=== PATIENT | female | born 1970 | race Caucasian/White ===

== ENCOUNTER 2017-09-27 20:12 | Emergency (ER) | payer OTHER ==
[~2017-09-27] VITALS: Ht 160 cm; Wt 95.3 kg
--- NOTE | 2017-09-27 21:08 | ED GENERAL ADULT ---
History of Present Illness General Chief Complaint: General Adult Stated Complaint: "NAUSEA, DIZZY, DIARREHA" Source: patient Exam Limitations: no limitations Vital Signs & Intake/Output Vital Signs & Intake/Output Vital Signs Date Time Temp Pulse Resp B/P B/P Pulse O2 O2 Flow FiO2 Mean Ox Delivery Rate 09/27 2022 97.7 103 18 139/86 98 Room Air Allergies Coded Allergies: No Known Drug Allergies (NKDA 09/27/17) Reconcile Medications Ondansetron (Zofran Odt) 4 MG TAB.RAPDIS 1 TAB SL TID PRN nausea Triage Note: PT TO ED C/O +NAUSEA, DIZZINESS AND SOFT STOOL STARTING TODAY. STATES HAS HAD A COUGH "FOR WEEK" WITH YELLOW SPUTUM. O2 SAT 98% ON RA IN TRIAGE. PT AFEBRILE IN TRIAGE. WORKS IN A [employer]. DENIES UTI S/S. CURRENT MENSES. Triage Nurses Notes Reviewed? yes Onset: Gradual Duration: hour(s): Timing: constant : No Patient currently breastfeeds: No HPI: 47-year-old female with no known past medical history presenting with nausea, diarrhea, lightheadedness that began today. Also endorses lower abdominal cramping, but states that she is currently menstruating and this feels that her menstrual cramps. Patient states that she had respiratory symptoms over the past 3 weeks with nasal congestion, rhinorrhea, nonproductive cough that has been gradually improving, now only with very mild cough. Denies fevers, chest pain, shortness of breath, vomiting, dysuria. 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 (Mine Escobar) Past History Travel History Traveled to [place] past 21 day No Medical History Any Pertinent Medical History? none Neurological: NONE EENT: NONE Cardiovascular: NONE Respiratory: NONE Gastrointestinal: NONE Hepatic: NONE Renal: NONE Musculoskeletal: NONE Psychiatric: NONE Endocrine: NONE Surgical History Surgical History: non-contributory Psychosocial History What is your primary language Citizen Of [place] Tobacco Use: Never used ETOH Use: occasional use Illicit Drug Use: denies illicit drug use Family History Hx Contributory? No (Mine Escobar) Review of Systems Review of Systems Constitutional: Reports: no symptoms. EENTM: Reports: no symptoms. Respiratory: Reports: cough. Denies: short of breath, wheezing. Cardiovascular: Reports: no symptoms. GI: Reports: see HPI, abdominal pain, diarrhea, nausea. Denies: bloody stool, vomiting. Genitourinary: Reports: no symptoms. Musculoskeletal: Reports: no symptoms. Skin: Reports: no symptoms. Neurological/Psychological: Reports: no symptoms. Hematologic/Endocrine: Reports: no symptoms. Immunologic/Allergic: Reports: no symptoms. (Mine Escobar) Physical Exam Physical Exam General Appearance: well developed/nourished, no apparent distress, alert, awake , comfortable Head: atraumatic, normal appearance Eyes: Bilateral: normal appearance. Ears, Nose, Throat: normal ENT inspection Neck: normal inspection, supple Respiratory: normal breath sounds, lungs clear Cardiovascular: regular rate/rhythm, normal peripheral pulses Gastrointestinal: soft, non-tender Back: normal inspection Extremities: normal inspection Neurologic/Psych: awake, alert, oriented x 3, normal gait, normal mood/affect Skin: intact, normal color, warm/dry Core Measures ACS in differential dx? No CVA/TIA Diagnosis: No Sepsis Present: No Sepsis Focused Exam Completed? No (Mine Escobar) Progress Differential Diagnoses I considered the following diagnoses in my evaluation of the patient: [Likely viral syndrome - URI versus gastroenteritis. Low concern for pneumonia versus acute abdomen versus UTI.] Plan of Care: Orders Procedure Date/time Status URINALYSIS 09/28 2111 Complete TROPONIN LEVEL 09/27 2025 Complete LIPASE 09/27 2025 Complete HEPATIC FUNCTION PANEL 09/27 2025 Complete HUMAN BETA HCG SCREEN 09/27 2025 Complete CBC WITHOUT DIFFERENTIAL 09/27 2025 Complete BASIC METABOLIC PANEL 09/27 2025 Complete AMYLASE 09/27 2025 Complete EKG 09/27 2025 Active Laboratory Tests 09/27/172108: Anion Gap 11, Estimated GFR > 60, BUN/Creatinine Ratio 25.7 H, Glucose 107 H, Calcium 9.1, Total Bilirubin 0.6, Direct Bilirubin 0.6 H, AST 19, ALT 27, Alkaline Phosphatase 89, Troponin I < 0.01, Total Protein 7.9, Albumin 4.4, Amylase 46, Lipase 61, Total Beta HCG NEGATIVE, CBC w Diff NO MAN DIFF REQ, RBC 4.43, MCV 84.8, MCH 27.7, MCHC 32.6 L, RDW 14.2, MPV 8.4, Gran % 71.8, Lymphocytes % 19.4 L, Monocytes % 6.3, Eosinophils % 1.9, Basophils % 0.6, Absolute Granulocytes 6.3, Absolute Lymphocytes 1.7, Absolute Monocytes 0.5, Absolute Eosinophils 0.2, Absolute Basophils 0 09/27/172102: Urine Color YEL, Urine Clarity CLEAR, Urine pH 6.5, Ur Specific Dudley <= 1.005 , Urine Protein NEG, Urine Ketones NEG, Urine Nitrite NEG, Urine Bilirubin NEG, Urine Urobilinogen 0.2, Ur Leukocyte Esterase NEG, Ur Microscopic SEDIMENT EXAMINED, Urine RBC RARE, Urine Bacteria FEW H, Urine Hemoglobin LARGE H, Urine Glucose NEG Labs, urine, chest x-ray unremarkable. Patient reports improvement in nausea after Zofran and was able to tolerate po in the emergency department. Likely with viral syndrome and counseled on supportive care. Given Rx Zofran. Will follow-up with her PMD. Given strict return precautions. Initial ED EKG: NSR, rate (90) (Mine Escobar) Departure Departure Disposition: HOME OR SELF CARE Condition: Stable Clinical Impression Primary Impression: Diarrhea Secondary Impressions: Abdominal pain, Cough, Nausea Referrals: Kenn PUGH,Ghanshyam Suazo (PCP/Family) Additional Instructions: Use Zofran as needed for nausea or vomiting. Maintain adequate fluid intake and eat small meals as tolerable. Follow-up with your primary care provider for reevaluation. Return to the emergency department for any new or worsening symptoms. Departure Forms: Customer Survey General Discharge Information Prescriptions: Current Visit Scripts Ondansetron (Zofran Odt) 1 TAB SL TID PRN nausea #20 TAB (Mine sEcobar) PA/CAREER AGENT Co-Sign Statement Statement: ED Attending supervision documentation- [] I saw and evaluated the patient. I have also reviewed all the pertinent lab results and diagnostic results. I agree with the findings and the plan of care as documented in the PA's/CAREER AGENT's documentation. [x] I have reviewed the ED Record and agree with the PA's/CAREER AGENT's documentation. [] Additions or exceptions (if any) to the PAs/CAREER AGENT's note and plan are summarized below: [] (Yecenia PUGH,Leonides Clifton) Critical Care Note Critical Care Note Critical Care Time: non-applicable (Mine Escobar)
[2017-09-27 21:15] LABS: ABSOLUTE BASOPHIL COUNT 0 /CUMM (0.0-0.2); ABSOLUTE EOSINOPHIL COUNT 0.2 /CUMM (0.0-0.7); ABSOLUTE GRANULOCYTE CT 6.3 /CUMM (1.4-6.5); ABSOLUTE LYMPH COUNT 1.7 /CUMM (1.2-3.4); ABSOLUTE MONOCYTE COUNT 0.5 /CUMM (0.10-0.60); BASOPHIL % 0.6 % (0.0-2.0); EOSINOPHIL % 1.9 % (0-5); GRANULOCYTE % 71.8 % (42.2-75.2); HEMATOCRIT 37.5 % (37-47); MEAN CORPUSCULAR HGB 27.7 PG (27.0-31.0); MEAN CORPUSCULAR HGB CONC 32.6 G/DL (33.0-37.0); MEAN CORPUSCULAR VOLUME 84.8 FL (81.0-99.0); MEAN PLATELET VOLUME 8.4 FL (7.4-10.4); PLATELET COUNT 316 /CUMM (130-400); RBC DISTRIBUTION WIDTH 14.2 % (11.5-14.5); RED BLOOD CELL CT 4.43 /CUMM (4.20-5.40); WHITE BLOOD CELL COUNT 8.7 /CUMM (4.8-10.8)
--- NOTE | 2017-09-27 21:33 | RADIOLOGY REPORT ---
EXAMINATION: XR CHEST CLINICAL INFORMATION: Cough. Sputum for 3 weeks. COMPARISON: None TECHNIQUE: 2 views of the chest were obtained. FINDINGS: No significant abnormality is noted involving the heart, lungs, mediastinum, bony thorax or soft tissues. IMPRESSION: Unremarkable examination.
[2017-09-27] MEDS ORDERED: ZOFRAN ODT4 M1 SL (22:09)
[2017-09-27 22:35] VITALS: BP 133/81
== END 2017-09-27 22:40 ==
LOC: ERH 20:12
PROVIDERS: Pediatrics
DX: R19.7 Diarrhea, unspecified (principal); R10.30 Lower abdominal pain, unspecified; R05 Cough; R11.0 Nausea
CPT/HCPCS: 71046; 81001; 93005; 93010; J3101

== ENCOUNTER 2017-12-04 22:00 | Emergency (ER) | payer OTHER ==
[~2017-12-04] VITALS: Ht 162.6 cm; Wt 99.8 kg
[~2017-12-04 22:00] MED LIST: ZOFRAN ODT4 M1 SL
--- NOTE | 2017-12-04 22:29 | ED GI/GU/ABDOMINAL COMPLAINT ---
History of Present Illness General Chief Complaint: Abdominal Pain/Flank Pain Stated Complaint: ABD PAIN Source: patient Exam Limitations: no limitations Vital Signs & Intake/Output Vital Signs & Intake/Output Vital Signs Date Time Temp Pulse Resp B/P B/P Pulse O2 O2 Flow FiO2 Mean Ox Delivery Rate 12/04 2346 99.2 109 18 106/56 97 Room Air 12/04 2236 Room Air 12/04 2203 98.3 124 20 106/74 96 Room Air ED Intake and Output 12/05 0000 12/04 1200 Intake Total 0 Output Total Balance 0 Intake, Oral 0 Patient 220 lb Weight Weight Reported by Patient Measurement Method Allergies Coded Allergies: No Known Allergies (12/04/17) Reconcile Medications Ciprofloxacin HCl (Cipro) 500 MG TABLET 1 TAB PO BID uti Ondansetron (Zofran Odt) 4 MG TAB.RAPDIS 1 TAB SL TID PRN nausea Triage Note: TRIAGE: PT TO ER C/C MID/UPPER ABD PAIN WITH RADIATION TO LOWER ABD, ONSET SATURDAY, CONSTANT SINCE ONSET THOUGH WAXES AND WANES IN INTENSITY. -NAUSEA AT PRESENT BUT REPORTS SOME NAUSEA EARLY SATURDAY MORNING WITH 1 EPISODE OF VOMITING. REPORTS A LITTLE BIT OF DIARRHEA TODAY, LAST NORMAL BOWEL MOVEMENT 4-5 DAYS AGO. -URINARY S/S. LMP MIDDLE OF LAST MONTH. Triage Nurses Notes Reviewed? yes ? n Is pt currently ? No Onset: Abrupt Duration: day(s): (3) Timing: recent history Location: epigastric Radiation: no radiation Activities at Onset: none No Modifying Factors: none HPI: 47-year-old female comes into the emergency room for further evaluation of upper abdominal pain. She is had decrease in bowel movements. She has not had a bowel movement in 4 days which is not typical for her. She denies any fever chills vomiting. Denies any prior abdominal surgeries. Denies any urinary symptoms. Nothing seems to make the symptoms better or worse. (Chico Colvin) Past History Travel History Traveled to [place] past 21 day No Medical History Any Pertinent Medical History? 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 No (Chico Colvin) Review of Systems Review of Systems Constitutional: Reports: no symptoms. EENTM: Reports: no symptoms. Respiratory: Reports: no symptoms. Cardiovascular: Reports: no symptoms. GI: Reports: see HPI. Genitourinary: Reports: no symptoms. Musculoskeletal: Reports: no symptoms. Skin: Reports: no symptoms. Neurological/Psychological: Reports: no symptoms. Hematologic/Endocrine: Reports: no symptoms. Immunologic/Allergic: Reports: no symptoms. All Other Systems: Reviewed and Negative (Chico Colvin) Physical Exam Physical Exam General Appearance: well developed/nourished, alert, awake Head: atraumatic Eyes: Bilateral: normal appearance. Ears, Nose, Throat, Mouth: hearing grossly normal, moist mucous membrane Neck: normal inspection Respiratory: no respiratory distress Gastrointestinal: soft Back: normal inspection Extremities: normal range of motion Neurologic/Psych: awake, alert, oriented x 3 Skin: intact, normal color Core Measures ACS in differential dx? No Sepsis Present: No Sepsis Focused Exam Completed? No (Chico Colvin) Progress Differential Diagnosis: appendicitis, biliary colic, bowel obstruction, cholecystitis, diverticulitis, gastritis, hepatitis, hernia, ischemic bowel, inflamm bowel dis, kidney stone, pancreatitis, peptic ulcer, PUD/GERD, perforated viscous, SBO, UTI/pyelo Plan of Care: Orders Procedure Date/time Status Add-on Test (ER Only) 12/05 0023 Active CULTURE,URINE 12/04 2341 Active URINALYSIS 12/04 2212 Complete TROPONIN LEVEL 12/04 2204 Complete LIPASE 12/04 2204 Complete HEPATIC FUNCTION PANEL 12/04 2204 Complete HUMAN BETA HCG SCREEN 12/04 2204 Complete CBC WITHOUT DIFFERENTIAL 12/04 2204 Complete BASIC METABOLIC PANEL 12/04 2204 Complete AMYLASE 12/04 2204 Complete EKG 12/04 2204 Active Laboratory Tests 12/04/17 2341: Urinalysis LIGHT H, Urine Color YEL, Urine Clarity CLDY H, Urine pH 6.0, Ur Specific Harris 1.025, Urine Protein 100 H, Urine Ketones 15 H, Urine Nitrite NEG, Urine Bilirubin NEG@ICTO, Urine Urobilinogen >=8.0 H, Ur Leukocyte Esterase TRACE H, Ur Microscopic SEDIMENT EXAMINED, Urine RBC 1-3, Urine WBC 3- 5 H, Ur Epithelial Cells MANY H, Urine Bacteria MANY H, Urine Mucus MOD H, Urine Hemoglobin NEG, Urine Glucose NEG 12/04/17 2225: Anion Gap 13, Estimated GFR > 60, BUN/Creatinine Ratio 20.0, Glucose 121 H, Calcium 9.0, Total Bilirubin 1.0, Direct Bilirubin 0.3, AST 15, ALT 28, Alkaline Phosphatase 116, Troponin I < 0.01, Total Protein 7.2, Albumin 3.7, Amylase 41, Lipase 51, Total Beta HCG NEGATIVE, CBC w Diff MAN DIFF ORDERED, RBC 4.34, MCV 85.0, MCH 28.2, MCHC 33.2, RDW 14.7 H, MPV 8.5, Gran % 92.3 H, Lymphocytes % 5.2 L, Monocytes % 2.3, Eosinophils % 0.1, Basophils % 0.1, Absolute Granulocytes 16.8 H, Segmented Neutrophils 87 H, Band Neutrophils 5, Absolute Lymphocytes 0.9 L, Lymphocytes 6 L, Monocytes 2, Absolute Monocytes 0.4, Absolute Eosinophils 0, Absolute Basophils 0, Platelet Estimate ADEQUATE, Normocytic RBCs VERIFIED, Normochromic RBCs VERIFIED, Fld Total RBCs Counted 100 Microbiology 12/04 2341 URINE ROUT: Urine Culture - RECD Diagnostic Imaging: Viewed by Me: CT Scan. Discussed w/RAD: CT Scan. Radiology Impression: PATIENT: LEVI LAUGHLIN V PRESENT AGE: 47 PATIENT ACCOUNT NO: [id number] : 72 LOCATION: [facility] ORDERING PHYSICIAN: [place]ico NUÑEZ SERVICE DATE: 12/04/17 EXAM TYPE: CAT - CT ABD & PELVIS W/O IV CONTRAS EXAMINATION: CT ABDOMEN AND PELVIS WITHOUT CONTRAST CLINICAL INFORMATION: Epigastric pain COMPARISON: None TECHNIQUE: Multidetector volumetric imaging was performed from the superior aspect of the liver through the pubic symphysis. Sagittal and coronal reformatted images were obtained on the technologist's workstation. DLP: 1330.75 mGy-cm FINDINGS: LUNG BASES: The visualized lung bases are unremarkable. LIVER, GALLBLADDER, AND BILIARY TREE: The liver is normal in size, shape, and attenuation. No focal hepatic lesion or biliary ductal dilatation is present. The gallbladder is unremarkable with no evidence of radiopaque gallstones, gallbladder wall thickening, or obvious pericholecystic inflammatory changes. PANCREAS: Unremarkable. SPLEEN: Unremarkable. ADRENAL GLANDS: Unremarkable. KIDNEYS AND URETERS: The kidneys are normal in size, shape, and attenuation. No hydronephrosis, hydroureter, or calculi seen. No perinephric stranding. BLADDER: Unremarkable. GASTROINTESTINAL TRACT: The small and large bowel are unremarkable. The appendix is not visualized. There is no inflammation of the mesentery. ABDOMINAL WALL: No significant hernia is appreciated. LYMPH NODES: Normal. VASCULAR: Unremarkable. PELVIC VISCERA: Uterus is anteverted. There is a large pedunculated fibroid at the posterior uterus. This measures approximately 6.5 x 7 x 7 cm. There is a second large pedunculated fibroid at the left posterior uterus. This measures about 5 x 6 x 4 cm there is no adnexal mass. OSSEOUS STRUCTURES: Unremarkable. IMPRESSION: 1. No acute abnormality CT scan abdomen and pelvis. 2. Uterine fibroids. DICTATED BY: Marcos Garcia MD DATE/TIME DICTATED:12/04/172318 DATABASE MARKETING ANALYST:DEWAYNE DATE/TIME TRANSCRIBED:2318 CONFIDENTIAL, DO NOT COPY WITHOUT APPROPRIATE AUTHORIZATION. < Electronically signed in Other Vendor System> SIGNED BY: Marcos Garcia MD 2328 Initial ED EKG: normal sinus rhythm, rate (110), nonspecific ST T wave chg (Chico Colvin) Departure Departure Disposition: HOME OR SELF CARE Condition: Stable Clinical Impression Primary Impression: Abdominal pain Secondary Impressions: Leukocytosis, UTI (urinary tract infection) Referrals: Kenn PUGH,Ghanshyam Suazo (PCP/Family) Additional Instructions: Take ciprofloxacin as prescribed. Follow-up with primary care doctor. Have your white blood cell count rechecked. Return if any concerns worsening symptoms. Please go over all results of today's visit with your primary care doctor. Contact your primary care doctor to let them know you were here in the emergency room. There may be nonspecific findings which may not be related to your visit today here in the emergency room but may require further evaluation and chronic monitoring by your primary care doctor. If you had a laceration today the chance of foreign body always remains. You should follow-up with your primary care doctor for recheck in 3-5 days for a wound check. If you had an x-ray done there is a chance that a fracture could have been missed on initial read and you should follow-up with your primary care doctor for repeat x-rays if symptoms persist. If your blood pressure was elevated here in the emergency room please have rechecked by karriour primary care doctor within the next 48. If you were prescribed a narcotic here in the emergency room or any type of controlled substances you're not allowed to drive while taking this medication or operate any type of heavy machinery. Narcotics can make you feel lightheaded dizziness nausea and can cause constipation. 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 Thank you for choosing [facility] emergency room. Please return to the emergency room immediately if you have any other concerns worsening of symptoms. Departure Forms: Customer Survey General Discharge Information Prescriptions: Current Visit Scripts Ciprofloxacin HCl (Cipro) 1 TAB PO BID #14 TAB Comments 12/05/2017 12:28:28 AM No acute findings here in the emergency room. Leukocytosis unclear at this time. No acute abdomen. Minimal signs of bacteria in the urine but patient started on oral antibiotics. Have white blood cell count rechecked by PCP next week. Results were discussed with the patient. She understands and agrees with plan of care. She had some mild acid reflux here which was resolved with GI cocktail. Symptoms are clearly abdominal related. No concern for acute coronary syndrome. No other associated symptoms such as cough runny nose or upper respiratory symptoms. Denies any rashes. No other source of infection. (Juan Francisco NUÑEZ,Chico) PA/SOCIAL PROFESSIONALS Co-Sign Statement Statement: ED Attending supervision documentation- [] I saw and evaluated the patient. I have also reviewed all the pertinent lab results and diagnostic results. I agree with the findings and the plan of care as documented in the PA's/SOCIAL PROFESSIONALS's documentation. []x I have reviewed the ED Record and agree with the PA's/SOCIAL PROFESSIONALS's documentation. [] Additions or exceptions (if any) to the PAs/SOCIAL PROFESSIONALS's note and plan are summarized below: [] (Yecenia PUGH,Leonides Clifton)
[2017-12-04 22:35] LABS: ABSOLUTE BASOPHIL COUNT 0 /CUMM (0.0-0.2); ABSOLUTE EOSINOPHIL COUNT 0 /CUMM (0.0-0.7); ABSOLUTE GRANULOCYTE CT 16.8 /CUMM (1.4-6.5); ABSOLUTE LYMPH COUNT 0.9 /CUMM (1.2-3.4); ABSOLUTE MONOCYTE COUNT 0.4 /CUMM (0.10-0.60); BASOPHIL % 0.1 % (0.0-2.0); EOSINOPHIL % 0.1 % (0-5); GRANULOCYTE % 92.3 % (42.2-75.2); MEAN CORPUSCULAR HGB 28.2 PG (27.0-31.0); MEAN CORPUSCULAR HGB CONC 33.2 G/DL (33.0-37.0); MEAN PLATELET VOLUME 8.5 FL (7.4-10.4); PLATELET COUNT 297 /CUMM (130-400); RBC DISTRIBUTION WIDTH 14.7 % (11.5-14.5); RED BLOOD CELL CT 4.34 /CUMM (4.20-5.40); WHITE BLOOD CELL COUNT 18.2 /CUMM (4.8-10.8)
--- NOTE | 2017-12-04 23:29 | CT SCAN REPORT ---
EXAMINATION: CT ABDOMEN AND PELVIS WITHOUT CONTRAST CLINICAL INFORMATION: Epigastric pain COMPARISON: None TECHNIQUE: Multidetector volumetric imaging was performed from the superior aspect of the liver through the pubic symphysis. Sagittal and coronal reformatted images were obtained on the technologist's workstation. DLP: 1330.75 mGy-cm FINDINGS: LUNG BASES: The visualized lung bases are unremarkable. LIVER, GALLBLADDER, AND BILIARY TREE: The liver is normal in size, shape, and attenuation. No focal hepatic lesion or biliary ductal dilatation is present. The gallbladder is unremarkable with no evidence of radiopaque gallstones, gallbladder wall thickening, or obvious pericholecystic inflammatory changes. PANCREAS: Unremarkable. SPLEEN: Unremarkable. ADRENAL GLANDS: Unremarkable. KIDNEYS AND URETERS: The kidneys are normal in size, shape, and attenuation. No hydronephrosis, hydroureter, or calculi seen. No perinephric stranding. BLADDER: Unremarkable. GASTROINTESTINAL TRACT: The small and large bowel are unremarkable. The appendix is not visualized. There is no inflammation of the mesentery. ABDOMINAL WALL: No significant hernia is appreciated. LYMPH NODES: Normal. VASCULAR: Unremarkable. PELVIC VISCERA: Uterus is anteverted. There is a large pedunculated fibroid at the posterior uterus. This measures approximately 6.5 x 7 x 7 cm. There is a second large pedunculated fibroid at the left posterior uterus. This measures about 5 x 6 x 4 cm there is no adnexal mass. OSSEOUS STRUCTURES: Unremarkable. IMPRESSION: 1. No acute abnormality CT scan abdomen and pelvis. 2. Uterine fibroids.
[2017-12-04 23:46] VITALS: BP 106/56
[2017-12-05] MEDS ORDERED: CIPRO500 M1 PO (00:25)
== END 2017-12-05 00:31 ==
LOC: ERH 22:00
PROVIDERS: Pediatrics
DX: D72.829 Elevated white blood cell count, unspecified (principal); N39.0 Urinary tract infection, site not specified
CPT/HCPCS: 74176; 81001; 87086; 93005; 93010